=== PATIENT | female | born 1965 ===

== ENCOUNTER 2017-10-01 11:02 | Day surgery (SDC) | payer MEDICAID ==
[2017-09-25 11:39] VITALS: BMI 31.9
[2017-10-01 11:29] VITALS: O2SAT 99
[2017-10-01] MEDS ORDERED: Propofol 10 mg/ml Inj (20 ML) ONE ×2 (13:00→13:09)
[2017-10-01] MEDS ORDERED: Sodium Chloride 0.9% 1,000 ML IV SCH (14:00)
[2017-10-01] MEDS ORDERED: Simethicone 40 mg/0.6 ml Liquid (30 ml) ONE (14:06)
[2017-10-01 14:54] VITALS: BP 144/75; PULSE 68; RESP 20; TEMP 97.8
== END 2017-10-01 15:20 | disposition home or self-care (01) ==
LOC: ENDO 11:02
PROVIDERS: ATTEND Internal Medicine
DX: K29.70 Gastritis, unspecified, without bleeding (principal); B96.81 Helicobacter pylori [H. pylori] as the cause of diseases classified elsewhere; R14.0 Abdominal distension (gaseous); K59.09 Other constipation; K64.8 Other hemorrhoids
CPT/HCPCS: 43239; 45378; 88305; 88342; J2704; J7040 ×2

== ENCOUNTER 2018-02-10 10:55 | Day surgery (SDC) | payer MEDICAID ==
[2018-02-03 13:47] VITALS: BMI 33.0
[2018-02-10 11:19] LABS: BASO # 0.03 K/mm3 (0.0-2.0); BASO % 0.4 % (0.0-3.0); EOS # 0.1 (0.0-0.7); EOS % 1.3 % (1.5-5.0); GRAN # 4.35 (1.4-6.5); GRAN % 56.4 % (50.0-68.0); HEMOGLOBIN 13.2 g/dL (12.0-16.0); LYMPH # 2.8 (1.2-3.4); LYMPH % 36.1 % (22.0-35.0); MEAN CELL VOLUME 87.9 fl (80.0-105.0); MEAN CORPUSCULAR HEMOGLOBIN 30.1 pg (25.0-35.0); MEAN CORPUSCULAR HGB CONC 34.3 g/dl (31.0-37.0); MEAN PLATELET VOLUME 9.2 fl (7.0-11.0); MONO # 0.5 (0.1-0.6); MONO % 5.8 % (1.0-6.0); RBC 4.38 10^6/uL (3.5-6.1); WHITE BLOOD COUNT 7.7 10^3/ul (4.5-11.0)
[2018-02-10 11:28] LABS: INR 1.01 (0.93-1.08); PARTIAL THROMBOPLASTIN TIME 31.9 Seconds (25.1-36.5); PROTHROMBIN TIME 11.6 SECONDS (9.4-12.5)
[2018-02-10 11:33] LABS: BLOOD UREA NITROGEN 16 mg/dL (7-21); CALCIUM 10.5 mg/dL (8.4-10.5); GFR AFRICAN-AMERICAN > 60; GFR NON-AFRICAN AMERICAN > 60
[2018-02-10] MEDS ORDERED: Midazolam 2 MG/2 ML VIAL ONE (12:53)
[2018-02-10] MEDS ORDERED: Lidocaine 1% Inj (20ml) ONE (12:54)
[2018-02-10] MEDS ORDERED: Oxycodone/Acetaminophen 5/325 mg Tab PO PRN (13:55)
[2018-02-10] MEDS ORDERED: Sodium Chloride 0.45% 1,000 ML IV SCH (14:00)
[2018-02-10 15:02] VITALS: PULSE 68; RESP 97; TEMP 97.8; O2SAT 100
--- NOTE | 2018-02-10 15:03 | US ---
PROCEDURE: Ultrasound-guided right thyroid fine needle aspiration biopsy. CLINICAL HISTORY: Solitary 3.6 cm isoechoic right thyroid nodule. Evaluate for malignancy PHYSICIAN(S): Alf South M.D. TECHNIQUE: The relative risks and indications for the procedure were explained to the patient and consent obtained. The patient was placed supine on the stretcher with the neck extended and preliminary sonography of the thyroid performed. This reveal large solitary 3.5 cm isoechoic right thyroid nodule.. There is a sub 1 cm nodule on the left. The neck was prepped and draped in the usual sterile fashion. Conscious sedation and monitoring were provided throughout the procedure by a nurse. 1% Xylocaine was used to anesthetize the skin and soft tissues at the access site. Three passes with a 22-gauge needle were performed under ultrasound guidance for fine needle aspiration of the 3.5 cm isoechoic nodule in the right thyroid. The slides were reviewed by pathology and deemed adequate. The patient tolerated the procedure well. IMPRESSION: 1. Ultrasound guided fine needle aspiration of a 3.5 cm isoechoicnodule in the right thyroid.
[2018-02-10 16:00] VITALS: BP 138/72
== END 2018-02-10 15:50 | disposition home or self-care (01) ==
LOC: SDS 10:55
PROVIDERS: ATTEND Radiology Vascular & Interventional Radiology
DX: E04.1 Nontoxic single thyroid nodule (principal); I10 Essential (primary) hypertension
CPT/HCPCS: 10022; 36415; 80048; 85025; 85610; 85730; 88173; 88305; J2250; J2405; J3010; J7030

== ENCOUNTER 2018-05-17 14:08 | Emergency (ER) | payer MEDICAID ==
[2018-05-17 14:08] VITALS: BMI 33.0
[2018-05-17 15:25] VITALS: TEMP 98.2
[2018-05-17 16:57] VITALS: RESP 18
--- NOTE | 2018-05-17 18:04 | ED PDOC ---
Arrival/HPI - General Chief Complaint: Cough, Cold, Congestion Time Seen by Provider: 05/17/18 15:41 Historian: Patient - History of Present Illness Narrative History of Present Illness (Text): 05/17/18 18:01 52yr old female presents today with sore throat, cough and right ear pain. pt states she developed sore throat 3 days ago, pt states then developed right ear pain and yesterday developed dry cough. pt states she feels mucus in the back of her throat. pt c/o subjective fevers/chills. no dizziness or weakness. no sick contacts. no medications taken for pain at home. no other complaints. Time/Duration: Other (3 days) Symptom Onset: Gradual Symptom Course: Worsening Quality: Aching, Burning Severity Level: Mild Past Medical History - Provider Review Nursing Documentation Reviewed: Yes - Travel History Have you recently traveled outside [place] w/in the past 3 mons?: No - Tetanus Immunization Tetanus Immunization: Unknown - Cardiac Hx Cardiac Disorders: Yes Hx Hypertension: Yes Hx Pacemaker: No - Neurological Hx Paralysis: No - Hematological/Oncological Hx Blood Transfusions: No Hx Blood Transfusion Reaction: No - Integumentary Hx Dermatological Disorder: Yes (generalized rash) - Musculoskeletal/Rheumatological Hx Musculoskeletal Disorders: No - Genitourinary/Gynecological Hx Genitourinary Disorders: Yes (overactive bladder) - Psychiatric Hx Emotional Abuse: No Hx Physical Abuse: No Hx Substance Use: No - Anesthesia Hx Anesthesia Reactions: No Hx Malignant Hyperthermia: No - Suicidal Assessment Feels Threatened In Home Enviroment: No Family/Social History - Physician Review Nursing Documentation Reviewed: Yes Family/Social History: Unknown Family HX Smoking Status: Never Smoked Hx Alcohol Use: No Hx Substance Use: No Allergies/Home Meds Allergies/Adverse Reactions: Allergies No Known Allergies Allergy (Verified 05/17/18 15:20) Home Medications: Home Meds Medication Instructions Recorded Confirmed Simvastatin [Zocor] 20 mg PO HS 09/25/17 02/10/18 Darifenacin Hydrobromide [Enablex] 15 mg PO DAILY 02/03/18 02/10/18 Diovan Hct 320-25 mg Tablet 1 tab PO DAILY 02/03/18 02/10/18 Imipramine HCl 25 mg PO DAILY 02/03/18 02/10/18 Nitrofurantoin Monohyd/M-Cryst 1 tab PO BID 02/03/18 02/10/18 [Nitrofurantoin [place]-Mcr 100 mg] Pantoprazole [Protonix] 40 mg PO DAILY 02/03/18 02/10/18 Propranolol [Inderal] 10 mg PO TID 02/03/18 02/10/18 Review of Systems - Review of Systems Constitutional: Fevers. absent: Fatigue ENT: Sore Throat, Sinus Congestion Respiratory: Cough. absent: SOB Cardiovascular: absent: Palpitations Gastrointestinal: absent: Abdominal Pain, Nausea, Vomiting Genitourinary Female: absent: Dysuria Musculoskeletal: absent: Arthralgias Skin: absent: Rash, Pruritis Neurological: Headache. absent: Dizziness Psychiatric: absent: Anxiety, Depression Physical Exam Vital Signs Reviewed: Yes Vital Signs Temp Pulse Resp BP Pulse Ox 05/17/18 18:55 79 18 145/74 98 05/17/18 16:57 86 18 148/79 98 05/17/18 15:24 98.2 F 90 20 156/86 H 98 Temperature: Afebrile Blood Pressure: Hypertensive Pulse: Regular Respiratory Rate: Normal Appearance: Positive for: Well-Appearing, Non-Toxic, Comfortable Pain Distress: None Mental Status: Positive for: Alert and Oriented X 3 - Systems Exam Head: Present: Atraumatic Pupils: Present: PERRL Extroacular Muscles: Present: EOMI Conjunctiva: Present: Normal Ears: Present: Normal, Erythema (right TM erythema) Mouth: Present: Moist Mucous Membranes, Normal Lips, Normal Tounge, Normal Teeth. No: Drooling, Trismus Pharnyx: Present: ERYTHEMA, Other (+ post nasal drip noted). No: EXUDATE, TONSILS ENLARGED, Peritonsilar Swelling, Uvular Deviation, Muffled/Hoarse Voice , Strider, Soft Palate/Uvular Edema Nose (External): Present: Atraumatic Nose (Internal): Present: Normal Inspection Neck: Present: Normal Range of Motion, Trachea Midline. No: Lymphadenopathy Respiratory/Chest: Present: Clear to Auscultation, Good Air Exchange. No: Respiratory Distress, Accessory Muscle Use Cardiovascular: Present: Regular Rate and Rhythm, Normal S1, S2. No: Murmurs Abdomen: No: Tenderness Upper Extremity: Present: Normal ROM Lower Extremity: Present: Normal ROM Neurological: Present: GCS=15, Speech Normal Skin: Present: Warm, Dry, Normal Color. No: Rashes Psychiatric: Present: Alert, Oriented x 3 Medical Decision Making ED Course and Treatment: 05/17/18 18:04 Patient is nontoxic well appearing in no distress. Vital signs are stable Tolerating p.o. fluids and solids rapid strep; negative toradol IM Decadron 10 mg IM Chest x-ray: wnl zithromax given PO Patient reassessment: Patient feeling better after medications, vital signs stable. Moist mucous membranes.pt states throat feels much better. I advised follow up with primary care physician within the next 2 days, advised to increase fluids take medications as prescribed and return if symptoms worsen persist or if new symptoms develop Patient verbalizes understanding of discharge instructions and need for immediate followup. all aspects of this case were discussed the attending of record. IMPRESSION; pharyngitis, earache, cough Motrin every 6 hours as needed for pain/fever reduction Increase fluids Zithromax daily x 4 days. flonase; 2 sprays each nostril once daily. Follow up primary care physician within the next 2 days Saltwater gargles, throat lozenges Return if symptoms worsen persist or if the symptoms develop; high fevers, feeling of throat closing, difficulty swallowing or if any other concerning symptoms develop. - Lab Interpretations Lab Results: Lab Results 05/17/18 17:00: Grp A Beta Strep Ag Negative - RAD Interpretation Radiology Orders: 05/17/18 16:15 CHEST TWO VIEWS (PA/LAT) [RAD] Stat - Medication Orders Current Medication Orders: Discontinued Medications Azithromycin (Zithromax) 500 mg PO STAT STA PRN Reason: Protocol Stop: 05/17/18 19:12 Last Admin: 05/17/18 19:57 Dose: 500 mg Dexamethasone (Decadron Inj) 10 mg IM STAT STA Stop: 05/17/18 16:16 Last Admin: 05/17/18 17:00 Dose: 10 mg IM Administration Charges Document 05/17/18 17:00 EQ (Rec: 05/17/18 17:00 EQ [id number]) Injection Site MAR Injection Site Left Deltoid Charges for Administration # of IM Administrations 1 Ketorolac Tromethamine (Toradol) 15 mg IM STAT STA Stop: 05/17/18 16:16 Last Admin: 05/17/18 16:59 Dose: 15 mg MAR Pain Assessment Document 05/17/18 16:59 EQ (Rec: 05/17/18 17:00 EQ [place] [id number]) Pain Reassessment Is this a pain reassessment? No Sleep Is patient sleeping during reassessment? No Presence of Pain Presence of Pain Yes IM Administration Charges Document 05/17/18 16:59 EQ (Rec: 05/17/18 17:00 EQ [place] [id number]) Charges for Administration # of IM Administrations 1 Disposition/Present on Arrival - Present on Arrival Any Indicators Present on Arrival: No History of DVT/PE: No History of Uncontrolled Diabetes: No Urinary Catheter: No History of Decub. Ulcer: No History Surgical Site Infection Following: None - Disposition Have Diagnosis and Disposition been Completed?: Yes Diagnosis: Pharyngitis, Earache, Cough Disposition: HOME/ ROUTINE Disposition Time: 18:00 Patient Plan: Discharge Patient Problems: Current Active Problems Problem Status Onset Cough Acute Earache Acute Pharyngitis Acute Condition: GOOD Discharge Instructions (ExitCare): Cough in Adults, Sore Throat in Adults Additional Instructions: Motrin every 6 hours as needed for pain/fever reduction Increase fluids Zithromax daily x 4 days. flonase; 2 sprays each nostril once daily. Follow up primary care physician within the next 2 days Saltwater gargles, throat lozenges Return if symptoms worsen persist or if the symptoms develop; high fevers, feeling of throat closing, difficulty swallowing or if any other concerning symptoms develop. Prescriptions: Azithromycin [Zithromax] 250 mg PO DAILY #4 tab Fluticasone Nasal [Flonase] 2 spr NS DAILY #1 spr Ibuprofen [Motrin] 600 mg PO Q6H PRN #20 tab PRN Reason: pain/fever reduction Referrals: Spencer Hollis MD [Family Provider] - Follow up with primary Abner Fragoso DO [[facility]] - Follow up with primary Dylan Garcia MD [Staff Provider] - Follow up with primary Forms: [employer] ([employer]), WORK NOTE
[2018-05-17 21:16] VITALS: BP 132/76; PULSE 75; O2SAT 99
--- NOTE | 2018-05-18 09:00 | RAD ---
HISTORY: COMPARISON: 07/20/2013 TECHNIQUE: Chest PA and lateral FINDINGS: LINES AND TUBES: None. LUNG AND PLEURA: The lungs are well inflated and clear. No pleural effusion or pneumothorax. HEART AND MEDIASTINUM: The heart is not enlarged. The hilar and mediastinal contours are within normal limits. SKELETAL STRUCTURES: The bony structures are within normal limits for the patient's age. VISUALIZED UPPER ABDOMEN: Normal. OTHER FINDINGS: None. IMPRESSION: No active pulmonary disease.
== END 2018-05-17 20:00 | disposition home or self-care (01) ==
LOC: ED 14:08
DX: H92.01 Otalgia, right ear (principal); J02.9 Acute pharyngitis, unspecified; R05 Cough
CPT/HCPCS: 71046; 87070; 87430; 96372; 99283; J1100; J1885